=== PATIENT | male | born 1975 | race Caucasian/White ===

== ENCOUNTER 2019-07-22 08:50 | Emergency (ER) | payer BC ==
--- NOTE | 2019-07-22 09:15 | EDM.PDOC ---
ED HPI GENERAL MEDICAL PROBLEM - General Chief Complaint: Upper Extremity Injury/Pain Stated Complaint: RIGHT ARM PAIN Time Seen by Provider: 07/22/19 09:13 - History of Present Illness INITIAL COMMENTS - FREE TEXT/NARRATIVE: HISTORY AND PHYSICAL: History of present illness: Patient's a 43-year-old white male presents today status post blunt trauma to his right forearm this occurred when he hit with a pipe at work. He's had pain and swelling since Review of systems: As per history of present illness and below otherwise all systems reviewed and negative. Past medical history: As per history of present illness and as reviewed below otherwise noncontributory. Surgical history: As per history of present illness and as reviewed below otherwise noncontributory. Social history: No reported history of drug or alcohol abuse. Family history: As per history of present illness and as reviewed below otherwise noncontributory. Physical exam: HEENT: Atraumatic, normocephalic, pupils reactive, negative for conjunctival pallor or scleral icterus, mucous membranes moist, throat clear, neck supple, nontender, trachea midline. Lungs: Clear to auscultation, breath sounds equal bilaterally, chest nontender. Heart: S1S2, regular, negative for clicks, rubs, or JVD. Abdomen: Soft, nondistended, nontender. Negative for masses or hepatosplenomegaly. Negative for costovertebral tenderness. Pelvis: Stable nontender. Genitourinary: Deferred. Rectal: Deferred. Extremities: Patient has tenderness and swelling over the radial aspect distally of his right forearm is no gross deformity CMS and neurovascular exams unremarkable. Neuro: Awake, alert, oriented. Cranial nerves II through XII unremarkable. Cerebellum unremarkable. Motor and sensory unremarkable throughout. Exam nonfocal. Diagnostics: X-ray right forearm Therapeutics: To be determined Impression: #1 acute right forearm injury ( blunt force trauma post ) Definitive disposition and diagnosis as appropriate pending reevaluation and review of above. Right Wrist Pain Score (Numeric/FACES): 4 - Related Data Allergies Allergy/AdvReac Type Severity Reaction Status Date / Time No Known Allergies Allergy Verified 07/22/19 09:02 Home Meds: Home Meds . [No Known Home Meds] 07/22/19 [History] Past Medical History Other Musculoskeletal History: left arm fracture, epidural injections for herniated disk in back - Infectious Disease History Infectious Disease History: Reports: Chicken Pox Social & Family History - Family History Family Medical History: Noncontributory - Tobacco Use Smoking Status *Q: Former Smoker Used Tobacco, but Quit: Yes Month/Year Tobacco Last Used: 10 years - Recreational Drug Use Recreational Drug Use: No Review of Systems - Review of Systems Review Of Systems: Comprehensive ROS is negative, except as noted in HPI. ED EXAM, GENERAL - Physical Exam Exam: See Below (dictation) Course - Vital Signs Last Recorded V/S: Last Vital Signs Temp 36.4 C 07/22/19 08:58 Pulse 71 07/22/19 10:20 Resp 14 07/22/19 10:20 BP 115/68 07/22/19 10:20 Pulse Ox 97 07/22/19 10:20 Departure - Departure Time of Disposition: 07:47 Disposition: Home, Self-Care 01 Condition: Good Clinical Impression: Contusion - Discharge Information Instructions: Contusion, [id number] Referrals: PCP,None [Primary Care Provider] - Forms: ED Department Discharge Care Plan Goals: The following information is given to patients seen in the emergency department who are being discharged to home. This information is to outline your options for follow-up care. We provide all patients seen in our emergency department with a follow-up referral. The need for follow-up, as well as the timing and circumstances, are variable depending upon the specifics of your emergency department visit. If you don't have a primary care physician on staff, we will provide you with a referral. We always advise you to contact your personal physician following an emergency department visit to inform them of the circumstance of the visit and for follow-up with them and/or the need for any referrals to a consulting specialist. The emergency department will also refer you to a specialist when appropriate. This referral assures that you have the opportunity for followup care with a specialist. All of these measure are taken in an effort to provide you with optimal care, which includes your followup. Under all circumstances we always encourage you to contact your private physician who remains a resource for coordinating your care. When calling for followup care, please make the office aware that this follow-up is from your recent emergency room visit. If for any reason you are refused follow-up, please contact the [facility] emergency department at and asked to speak to the emergency department charge nurse. Follow-up primary medical doctor continue current medications return as needed as discussed
--- NOTE | 2019-07-22 09:31 | CR ---
INDICATION: Right arm pain. TECHNIQUE: Two views of the right forearm. FINDINGS: No fracture, dislocation, erosion, or intrinsic skeletal lesion. IMPRESSION: Negative right forearm. Dictated by Ravindra Jaeger MD @ Jul 22 2019 9:29AM Signed by Dr. Ravindra Jaeger @ Jul 22 2019 9:30AM
--- NOTE | 2019-07-22 09:33 | CR ---
INDICATION: Right wrist pain. TECHNIQUE: Three views of the right wrist. COMPARISON: Correlation is made with x-rays of the right forearm from the same date. FINDINGS: No fracture, dislocation, erosion, or intrinsic lesion. IMPRESSION: Negative right wrist. Dictated by Ravindra Jaeger MD @ Jul 22 2019 9:30AM Signed by Dr. Ravindra Jaeger @ Jul 22 2019 9:31AM
== END 2019-07-22 10:23 | disposition home or self-care (01) ==
LOC: MW.ED 08:50
DX: S50.11XA Contusion of right forearm, initial encounter (principal); Z87.891 Personal history of nicotine dependence; W22.8XXA Striking against or struck by other objects, initial encounter; Y99.0 Civilian activity done for income or pay
CPT/HCPCS: 73090-26-RT; 73090-RT; 73110-26-RT; 73110-RT; 99282; 99283-25

== ENCOUNTER 2019-08-17 11:26 | Emergency (ER) | payer OTHER, BC ==
[2019-08-17 12:39] LABS: BLOOD UREA NITROGEN,BUN 16 mg/dL (7.0-18.0); CARBON DIOXIDE,CO2 28.2 mmol/L (21.0-32.0); CHLORIDE,CL 104 mmol/L (98-107); GLUCOSE RANDOM 121 mg/dL (74-106); POTASSIUM,K 4.3 mmol/L (3.5-5.1); SODIUM,NA 140 mmol/L (136-148)
--- NOTE | 2019-08-17 12:48 | CR ---
EXAM DATE: 08/17/19 PATIENT'S AGE: 43 Chest: Frontal view of the chest was obtained. Comparison: No previous chest imaging. Nodule is noted within the left base. Uncertain if this is nipple density or due to real nodule. Lungs otherwise are clear. Heart size and mediastinum are normal. Bony structures are unremarkable. Impression: 1. Nodule within the left base. Consider repeat PA exam with nipple marker in place to further evaluate. 2. Nothing acute is otherwise seen on frontal chest x-ray. Diagnostic code #9 This report was dictated in [place] Standard Time Report Signed by Proxy. [facility]
--- NOTE | 2019-08-17 12:56 | CR ---
EXAM DATE: 08/17/19 PATIENT'S AGE: 43 Cervical spine: AP, lateral and odontoid views of the cervical spine were obtained. Comparison: No prior cervical spine imaging. Vertebral body heights and disc spaces are maintained. Minimal anterior endplate osteophytes are noted at C4-C5, C5-C6 and C6-C7. Prevertebral soft tissues are normal. No subluxation or fracture is seen. Impression: 1. Minimal endplate osteophytes. 2. Nothing acute seen on three view cervical spine exam. Diagnostic code #2 This report was dictated in [place] Standard Time Report Signed by Proxy. MELLISSA
--- NOTE | 2019-08-17 12:57 | CR ---
EXAM DATE: 08/17/19 PATIENT'S AGE: 43 Lumbar spine: Comparison: No prior lumbar spine imaging. Mild disc space narrowing is noted at L5-S1. Other disc spaces are maintained. Vertebral body heights are maintained. No subluxation or fracture is seen. Mild endplate osteophytes are seen within L4 and L5. Pedicles are intact. Visualized transverse and spinous processes are intact. No fracture or subluxation is appreciated. Impression: 1. Mild degenerative change. 2. Nothing acute is seen. Diagnostic code #2 This report was dictated in [place] Standard Time Report Signed by Proxy. [facility]
--- NOTE | 2019-08-17 12:59 | CR ---
EXAM DATE: 08/17/19 PATIENT'S AGE: 43 Pelvis: AP view of the pelvis was obtained. Comparison: No previous pelvis study. Joint spaces within both hips are maintained. Sacroiliac joints are unremarkable. No fracture or other abnormality is seen. Impression: 1. Unremarkable AP pelvis study. Diagnostic code #1 This report was dictated in [place] Standard Time Report Signed by Proxy. [facility]
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
== END 2019-08-17 13:41 | disposition home or self-care (01) ==
LOC: MW.ED 11:26
DX: M62.830 Muscle spasm of back (principal); V53.5XXA Driver of pick-up truck or van injured in collision with car, pick-up truck or van in traffic accident, initial encounter; Y92.410 Unspecified street and highway as the place of occurrence of the external cause
CPT/HCPCS: 36415; 71045; 71045-26; 72040; 72040-26; 72100; 72100-26; 72170; 72170-26; 80053; 81003; 85025; 99283; 99284-25

== ENCOUNTER 2019-11-24 07:43 | Day surgery (SDC) | payer BC, OTHER ==
[~2019-11-24 07:43] MED LIST: Lactated Ringers 1,000 ML IV SCH; Lidocaine 2% 5 ML SDV ONE; Midazolam 1 MG/ML 2 ML SDV ONE; Propofol 200 MG/20 ML SDV ONE; fentaNYL 100 MCG/2 ML SDV ONE
[2019-11-24] MEDS ORDERED: Propofol 200 MG/20 ML SDV ONE ×2 (08:17→10:07)
--- NOTE | 2019-11-24 08:54 | PCM.PREANE ---
Preanesthetic Assessment - Anesthesia/Transfusion/Family Hx Anesthesia History: No Prior Anesthesia Family History of Anesthesia Reaction: No Transfusion History: No Prior Transfusion(s) Intubation History: Unknown - Review of Systems General: No Symptoms Pulmonary: No Symptoms Cardiovascular: No Symptoms Gastrointestinal: Abdominal Pain, Hematochezia Neurological: No Symptoms Other: Reports: None - Physical Assessment NPO Status Date: 11/23/19 NPO Status Time: 11:59 Vital Signs: Last Vital Signs Temp 36.3 C 11/24/19 08:22 Pulse 85 11/24/19 08:22 Resp 16 11/24/19 08:22 BP 150/84 H 11/24/19 08:22 Pulse Ox 98 11/24/19 08:22 Height: 6 ft 4 in Weight: 102.512 kg ASA Class: 1 Mental Status: Alert & Oriented x3 Airway Class: Mallampati = 1 Dentition: Reports: Normal Dentition Thyro-Mental Finger Breadths: 3 Mouth Opening Finger Breadths: 3 ROM/Head Extension: Full Lungs: Clear to Auscultation, Normal Respiratory Effort Cardiovascular: Regular Rate, Regular Rhythm - Allergies Allergies/Adverse Reactions: Allergies Allergy/AdvReac Type Severity Reaction Status Date / Time No Known Allergies Allergy Verified 08/17/19 11:41 - Blood Blood Available: No - Anesthesia Plan Pre-Op Medication Ordered: None - Acknowledgements Anesthesia Type Planned: MAC Pt an Appropriate Candidate for the Planned Anesthesia: Yes Alternatives and Risks of Anesthesia Discussed w Pt/Guardian: Yes Pt/Guardian Understands and Agrees with Anesthesia Plan: Yes PreAnesthesia Questionnaire - Past Health History Medical/Surgical History: Denies Medical/Surgical History Gastrointestinal History: Reports: Hemorrhoids Musculoskeletal History: Reports: Back Pain, Chronic, Fracture, Other (See Below ) Other Musculoskeletal History: left arm fracture, epidural injections for herniated disk in back - Infectious Disease History Infectious Disease History: Reports: None - Past Surgical History Head Surgeries/Procedures: Reports: None HEENT Surgical History: Reports: Oral Surgery Musculoskeletal Surgical History: Reports: None - SUBSTANCE USE Smoking Status *Q: Former Smoker Tobacco Use Within Last Twelve Months: No - HOME MEDS Home Medications: Home Meds Hydrocortisone/Pramoxine [Hydrocort-Pramoxine 2.5-1% Crm] 1 applic TOP ASDIRECTED PRN 11/20/19 [History] - CURRENT (IN HOUSE) MEDS Current Meds: Current Medications Lactated Ringer's (Ringers, Lactated) 1,000 mls @ 125 mls/hr IV ASDIRECTED SMOOTH Discontinued Medications Fentanyl (Sublimaze) Confirm Administered Dose 100 mcg .ROUTE .STK-MED ONE Stop: 11/24/19 07:28 Lidocaine (Xylocaine-Mpf 2%) Confirm Administered Dose 5 ml .ROUTE .STK-MED ONE Stop: 11/24/19 07:28 Midazolam HCl (Versed 1 Mg/Ml) Confirm Administered Dose 2 mg .ROUTE .STK-MED ONE Stop: 11/24/19 07:28 Propofol (Diprivan 20 Ml) Confirm Administered Dose 200 mg .ROUTE .STK-MED ONE Stop: 11/24/19 07:28 Propofol (Diprivan 20 Ml) Confirm Administered Dose 200 mg .ROUTE .STK-MED ONE Stop: 11/24/19 08:18
--- NOTE | 2019-11-24 10:47 | PCM.OPNOTE ---
- General Post-Op/Procedure Note Date of Surgery/Procedure: 11/24/19 Operative Procedure(s): colonoscopy w snare polypectomy Findings: see [id number] Pre Op Diagnosis: BRBPR Post-Op Diagnosis: Same Anesthesia Technique: Moderate Sedation Primary Surgeon: Sriram Melo Pathology: 7 mm sessile polyp, snare, at distance 15 cm when scope went in Complications: None Condition: Good Free Text/Narrative:: Intake & Output 11/23/19 11/24/19 11/24/19 22:59 06:59 14:59 Intake Total 1300 Balance 1300
--- NOTE | 2019-11-24 10:53 | PCM.POSTAN ---
POST ANESTHESIA ASSESSMENT - MENTAL STATUS Mental Status: Alert, Oriented - VITAL SIGNS Vital Signs: Last Vital Signs Temp 36.3 C 11/24/19 08:22 Pulse 62 11/24/19 10:35 Resp 18 11/24/19 10:35 BP 120/70 11/24/19 10:35 Pulse Ox 98 11/24/19 10:35 - RESPIRATORY Respiratory Status: Respiratory Rate WNL, Airway Patent, O2 Saturation Stable - CARDIOVASCULAR CV Status: Pulse Rate WNL, Blood Pressure Stable - GASTROINTESTINAL GI Status: No Symptoms - PAIN Pain Score: 0 - POST OP HYDRATION Hydration Status: Adequate & Stable - OBSERVATIONS Free Text/Narrative:: No anesthesia problems
--- NOTE | 2019-11-24 11:09 | PCM48HPAN ---
Post Anesthesia Note - EVALUATION WITHIN 48HRS OF ANESTHETIC Vital Signs in Normal Range: Yes Patient Participated in Evaluation: Yes Respiratory Function Stable: Yes Airway Patent: Yes Cardiovascular Function Stable: Yes Hydration Status Stable: Yes Pain Control Satisfactory: Yes Nausea and Vomiting Control Satisfactory: Yes Mental Status Recovered: Yes Vital Signs: Last Vital Signs Temp 36.2 C 11/24/19 10:41 Pulse 61 11/24/19 10:41 Resp 14 11/24/19 10:41 BP 125/80 11/24/19 10:41 Pulse Ox 98 11/24/19 10:41 - COMMENTS/OBSERVATIONS Free Text/Narrative:: No anesthesia problems
--- NOTE | 2019-11-24 12:26 | OR ---
SURGEON: Sriram Melo MD DATE OF PROCEDURE: 11/24/2019 PREOPERATIVE DIAGNOSIS: Bright red blood per rectum. POSTOPERATIVE DIAGNOSIS: Colon polyp. PROCEDURE PERFORMED: Colonoscopy with snare polypectomy. DESCRIPTION OF PROCEDURE: The patient was taken to the endoscopy room. A time out was called, patient identified, and procedure identified. Diprivan was then administrated. Patient went from awake to sleep, hearing doctor talking or door closing is normal. Perineum inspection and digital examination were then performed. A well- lubricated colonoscope was gently inserted through the rectum, advanced past the rectosigmoid junction, the descending colon, splenic flexure, transverse colon, hepatic flexure, ascending colon, arrived to the cecum. Cecum was identified as dictated in the finding. Then the scope was carefully withdrawn while attention was paid to the mucosal surface for any abnormality. Air will be sucked out during the scope withdrawal. At the rectum, retroflexed to examine any rectal diseases, fistula or hemorrhoids. During mucosal examination, abnormality or polyp encountered. Using snare equipment, the abnormality or the polyp was then snared off using electrocautery. The patient tolerated procedure well. There were no intraoperative complications, and Dr. Melo was present throughout the whole procedure. FINDINGS: 1. The patient is easily sedated with ROAD PACKER OPERATOR and Diprivan, the patient is soundly snoring. 2. Bowel prep is left to be desirable. I mean it looked pretty clean, but there was quite a lot of opaque yellow stool, liquid stool that compromised the study, quite a lot of them. Required quite a lot of irrigation, so this is a compromised study. Colon rather straightforward. Cecum indicated by ileocecal fold, one-to-one indentation, appendiceal orifice. ScopeGuide is pointing south. Light emittance is not observed. Mucosa examined upon scope pulling out with constant irrigation. The patient does not have diverticulosis, but has a moderate-sized polyp, about the size of 7 mm and at distance 15 cm when the scope go in. It was bookmarked and snared and captured and sent for pathology. Other than that, no other mass, growth, inflammation, stricture, ulceration, AV malformation, bleeding, none of those. The patient has moderate external hemorrhoid, a little bit internal hemorrhoid. The patient would benefit from discussion of management of the hemorrhoid at followup visit. The patient probably would benefit from a repeat colonoscopy in 18 months or 3 years, depends on the pathology of the polyp as this is a moderate-size polyp. CARRIE / EDEN /[id number]
== END 2019-11-24 11:17 | disposition home or self-care (01) ==
LOC: MW.SDS 07:43
PROVIDERS: ATTEND Surgery
DX: K63.5 Polyp of colon (principal); K64.4 Residual hemorrhoidal skin tags; K64.8 Other hemorrhoids
CPT/HCPCS: 45385; J2001; J2250; J2704; J3010; 88305

== ENCOUNTER 2020-09-13 07:25 | Day surgery (SDC) | payer BC, OTHER ==
[~2020-09-13 07:25] MED LIST changes: +Clindamycin Phosphate in D5W 600 MG in Premix Bag 50 BAG IV ONE; -Lidocaine 2% 5 ML SDV ONE; -Midazolam 1 MG/ML 2 ML SDV ONE; -Propofol 200 MG/20 ML SDV ONE; -fentaNYL 100 MCG/2 ML SDV ONE
[2020-09-13] MEDS ORDERED: Midazolam 1 MG/ML 2 ML SDV IVPUSH ONE (08:19)
--- NOTE | 2020-09-13 08:19 | PCM.PREANE ---
Preanesthetic Assessment - Anesthesia/Transfusion/Family Hx Anesthesia History: Prior Anesthesia Without Reaction Family History of Anesthesia Reaction: No Transfusion History: No Prior Transfusion(s) Intubation History: Unknown - Review of Systems General: No Symptoms Pulmonary: No Symptoms Cardiovascular: No Symptoms Gastrointestinal: No Symptoms Neurological: No Symptoms Other: Reports: Anxiety - Physical Assessment Height: 6 ft 4 in Weight: 106.141 kg ASA Class: 2 Mental Status: Alert & Oriented x3 Airway Class: Mallampati = 2 Dentition: Reports: Normal Dentition ROM/Head Extension: Full Lungs: Clear to Auscultation, Normal Respiratory Effort Cardiovascular: Regular Rate, Regular Rhythm - Allergies Allergies/Adverse Reactions: Allergies Allergy/AdvReac Type Severity Reaction Status Date / Time No Known Allergies Allergy Verified 09/10/20 12:04 - Blood Blood Available: No - Anesthesia Plan Pre-Op Medication Ordered: None - Acknowledgements Anesthesia Type Planned: General Anesthesia Pt an Appropriate Candidate for the Planned Anesthesia: Yes Alternatives and Risks of Anesthesia Discussed w Pt/Guardian: Yes Pt/Guardian Understands and Agrees with Anesthesia Plan: Yes PreAnesthesia Questionnaire - Past Health History Medical/Surgical History: Denies Medical/Surgical History HEENT History: Reports: None Cardiovascular History: Reports: None Respiratory History: Reports: None Gastrointestinal History: Reports: Hemorrhoids Genitourinary History: Reports: None Musculoskeletal History: Reports: Arthritis, Fracture, Other (See Below) Other Musculoskeletal History: left arm fracture, epidural injections for herniated disk in back, denies back pain at present Neurological History: Reports: None Psychiatric History: Reports: Anxiety Endocrine/Metabolic History: Reports: None Hematologic History: Reports: None Immunologic History: Reports: None Oncologic (Cancer) History: Reports: None Dermatologic History: Reports: None - Infectious Disease History Infectious Disease History: Reports: None - Past Surgical History Head Surgeries/Procedures: Reports: None HEENT Surgical History: Reports: Oral Surgery Cardiovascular Surgical History: Reports: None Respiratory Surgical History: Reports: None GI Surgical History: Reports: Colonoscopy Male Surgical History: Reports: None Endocrine Surgical History: Reports: None Neurological Surgical History: Reports: None Musculoskeletal Surgical History: Reports: None Oncologic Surgical History: Reports: None Dermatological Surgical History: Reports: None - SUBSTANCE USE Tobacco Use Status *Q: Former Tobacco User Tobacco Use Within Last Twelve Months: No - HOME MEDS Home Medications: Home Meds Hydrocortisone/Pramoxine [Hydrocort-Pramoxine 2.5-1% Crm] 1 applic TOP ASDIRECTED PRN 11/20/19 [History] Finasteride 1 mg PO DAILY 09/10/20 [History] - CURRENT (IN HOUSE) MEDS Current Meds: Current Medications Lactated Ringer's (Ringers, Lactated) 1,000 mls @ 125 mls/hr IV ASDIRECTED SMOOTH Discontinued Medications Clindamycin Phosphate 600 mg/ (Premix) 50 mls @ 100 mls/hr IV ONETIME ONE Stop: 09/13/20 05:29
[2020-09-13] MEDS ORDERED: Midazolam 1 MG/ML 2 ML SDV ONE ×3 (08:20→10:22)
[2020-09-13] MEDS ORDERED: fentaNYL 100 MCG/2 ML SDV ONE ×2 (08:25→09:59)
[2020-09-13] MEDS ORDERED: Propofol 200 MG/20 ML SDV ONE (08:25)
[2020-09-13] MEDS ORDERED: Bupivacaine 25%/EPINEPHrine/PF 30 ML ONE (08:56)
[2020-09-13] MEDS ORDERED: Succinylcholine/Sod PF 100 MG/5 ML SYRINGE IV ONE (09:04)
[2020-09-13] MEDS ORDERED: Rocuronium Bromide 50 MG/5 ML Syringe ONE (09:04)
[2020-09-13] MEDS ORDERED: Clindamycin Phosphate in D5W 50 ML ONE (09:21)
[2020-09-13] MEDS ORDERED: Dexamethasone 4 MG/ML 5 ML MDV ONE (10:00)
[2020-09-13] MEDS ORDERED: Glycopyrrolate 0.2 MG/ML SDV ONE (10:00)
[2020-09-13] MEDS ORDERED: Ondansetron 4 MG/2 ML SDV ONE (10:00)
[2020-09-13] MEDS ORDERED: 50% Dextrose in Water 50 ML Syringe IVPUSH PRN (10:04)
[2020-09-13] MEDS ORDERED: fentaNYL 100 MCG/2 ML SDV IVPUSH PRN (10:04)
[2020-09-13] MEDS ORDERED: Atropine 0.1 MG/ML 10 ML Syringe IVPUSH PRN ×2 (10:04)
[2020-09-13] MEDS ORDERED: Naloxone 0.4 MG/ML Syringe IVPUSH PRN (10:04)
[2020-09-13] MEDS ORDERED: EPINEPHrine 1:10,000 1 MG/10 ML Syringe IVPUSH PRN (10:04)
[2020-09-13] MEDS ORDERED: Albuterol 0.083% 2.5 MG/3 ML Neb Soln NEB PRN (10:04)
[2020-09-13] MEDS ORDERED: Ondansetron 4 MG/2 ML SDV IVPUSH PRN (10:04)
--- NOTE | 2020-09-13 10:48 | PCM.OPNOTE ---
- General Post-Op/Procedure Note Date of Surgery/Procedure: 09/13/20 Operative Procedure(s): hemorrhoidectomy Findings: hemorrhoid at 9 oclock removed; [id number] Pre Op Diagnosis: hemorrhoid Post-Op Diagnosis: Same Anesthesia Technique: General ET Tube Primary Surgeon: Sriram Melo Pathology: sent Complications: None Condition: Good
[2020-09-13] MEDS: HYDROmorphone 2 MG/ML Syringe IVPUSH PRN ×4 (10:52→11:13)
--- NOTE | 2020-09-13 11:02 | PCM.POSTAN ---
POST ANESTHESIA ASSESSMENT - MENTAL STATUS Mental Status: Alert, Oriented - VITAL SIGNS Vital Signs: Last Vital Signs Temp 97.5 F 09/13/20 10:37 Pulse 58 L 09/13/20 10:57 Resp 14 09/13/20 10:57 BP 135/85 09/13/20 10:57 Pulse Ox 98 09/13/20 10:57 - RESPIRATORY Respiratory Status: Respiratory Rate WNL, Airway Patent, O2 Saturation Stable - CARDIOVASCULAR CV Status: Pulse Rate WNL, Blood Pressure Stable - GASTROINTESTINAL GI Status: No Symptoms - POST OP HYDRATION Hydration Status: Adequate & Stable
--- NOTE | 2020-09-13 11:45 | OR ---
SURGEON: Sriram Melo MD DATE OF PROCEDURE: 09/13/2020 PREOPERATIVE DIAGNOSIS: Hemorrhoids. POSTOPERATIVE DIAGNOSIS: Hemorrhoids. PROCEDURE PERFORMED: Hemorrhoidectomy. PRIMARY SURGEON: Sriram Melo MD COMPLICATIONS: None. FINDINGS: Large hemorrhoid at around 9 o'clock and that was removed. DESCRIPTION OF PROCEDURE: The patient was taken to the operating room and placed in a supine position. Upon induction of general endotracheal anesthesia, the patient was repositioned in the jackknife position and the patient's perineum was then prepped and draped in a sterile fashion. Time-out was being called, patient identified, procedure identified, antibiotic given. Procedure then started. First, there was a 3- finger dilatation and followed with inspection with a speculum and the patient noted to have a large hemorrhoid at distance at around 9 o'clock in the clock phase when the patient was in prone position and also that is the hemorrhoid that brought the patient, is external and internal compound hemorrhoid-type, and using a Glory, hemorrhoid was elevated and using a chromic 3-0 a stitch was put in the distal end, and then using a 15 knife, the hemorrhoid was resected and sent for pathology. A mucosal repair was performed using a 3-0 chromic and followed with lidocaine jelly for pain management and also 5 mL of Marcaine with epi was injected for pain management and the patient was repositioned into supine position and extubated, awakened, and transferred to the recovery room in hemodynamically stable condition. The patient tolerated the procedure well. There were no intraoperative complications. Dr. Melo was present through the whole procedure. As always, thank you for the kind referral. CARRIE / EDEN /[id number] MTDMariia
[2020-09-13] MEDS ORDERED: oxyCODONE 5 MG Tab PO ONE (11:54)
--- NOTE | 2020-09-13 13:13 | PCM48HPAN ---
Post Anesthesia Note - EVALUATION WITHIN 48HRS OF ANESTHETIC Vital Signs in Normal Range: Yes Patient Participated in Evaluation: Yes Respiratory Function Stable: Yes Airway Patent: Yes Cardiovascular Function Stable: Yes Hydration Status Stable: Yes Pain Control Satisfactory: Yes Nausea and Vomiting Control Satisfactory: Yes Mental Status Recovered: Yes Vital Signs: Last Vital Signs Temp 97.5 F 09/13/20 10:37 Pulse 76 09/13/20 11:17 Resp 13 09/13/20 11:17 BP 140/88 09/13/20 11:17 Pulse Ox 99 09/13/20 11:17
== END 2020-09-13 13:45 | disposition home or self-care (01) ==
LOC: MW.SDS 07:25
PROVIDERS: ATTEND Surgery
DX: K64.8 Other hemorrhoids (principal); K64.4 Residual hemorrhoidal skin tags; Z79.899 Other long term (current) drug therapy
CPT/HCPCS: 46255; 88304; A9270; J0131; J0330; J1100; J1170; J2001; J2250; J2704; J3490; J7120; 00902; J2405; J3010